=== PATIENT | male | born 1990 | race Caucasian/White ===

== ENCOUNTER 2016-07-14 22:06 | Emergency (ER) | payer OTHER ==
[2016-07-14 22:15] VITALS: TEMP 98.1
[2016-07-14] MEDS ORDERED: ONDANSETRON DISINTEGRATING 4 MG TAB PO ONE (22:42)
--- NOTE | 2016-07-14 22:42 | DX ---
Left hand 3 views History: Punched a table. Findings: Nondisplaced fracture of the distal aspect of the 5th metacarpal has minimal angulation, wi th minimal impaction along the radial side fracture. The distal articular surface is uninvolved. Soft tissues are swollen along the dorsal ulnar aspect of the risks, but the underlying bones appear intact. Impression: Nondisplaced fracture of left 5th metacarpal.
--- NOTE | 2016-07-14 22:45 | EDPHY ---
H & P Stated Complaint: PTSD Time Seen by Provider: 07/14/16 22:34 HPI/ROS: CHIEF COMPLAINT: Hand injury HISTORY OF PRESENT ILLNESS: Patient is a 25-year-old man who punched a sink. He is here complaining of left hand pain. He is also intoxicated. He denies other injuries. He is currently vomiting. He had a large amount of alcohol this evening. REVIEW OF SYSTEMS: Constitutional: denies: chills, fever, recent illness, recent injury EENTM: denies: blurred vision, double vision, nose congestion Respiratory: denies: cough, shortness of breath Cardiac: denies: chest pain, irregular heart rate, lightheadedness, palpitations Gastrointestinal/Abdominal: denies: abdominal pain, diarrhea, nausea, vomiting, blood streaked stools Genitourinary: denies: dysuria, frequency, hematuria, pain Musculoskeletal: See HPI Skin: denies: lesions, rash, jaundice, bruising Neurological: denies: headache, numbness, paresthesia, tingling, dizziness, weakness Hematologic/Lymphatic: denies: blood clots, easy bleeding, easy bruising Immunologic/allergic: denies: HIV/AIDS, transplant EXAM: GENERAL: Patient actively vomiting when I entered the room. HEAD: Atraumatic, normocephalic. EYES: Pupils equal round and reactive to light, extraocular movements intact, sclera anicteric, conjunctiva are normal. ENT: TMs normal, nares patent, oropharynx clear without exudates. Moist mucous membranes. NECK: Normal range of motion, supple without lymphadenopathy or JVD. LUNGS: Breath sounds clear to auscultation bilaterally and equal. No wheezes rales or rhonchi. HEART: Regular rate and rhythm without murmurs, rubs or gallops. ABDOMEN: Soft, nontender, normoactive bowel sounds. No guarding, no rebound. No masses appreciated. BACK: No CVA tenderness, no spinal tenderness, step-offs or deformities EXTREMITIES: Left hand metacarpal pain and swelling. Normal pulses and capillary refill. NEUROLOGICAL: Cranial nerves II through XII grossly intact. Normal speech, normal gait. 5/5 strength, normal movement in all extremities, normal sensation PSYCH: Normal mood, normal affect. SKIN: Warm, dry, normal turgor, no visible rashes or lesions. Source: Patient Exam Limitations: No limitations - Personal History Current Tetanus/Diphtheria Vaccine: Yes Current Tetanus Diphtheria and Acellular Pertussis (TDAP): Yes - Medical/Surgical History Hx Asthma: No Hx Chronic Respiratory Disease: No Hx Diabetes: Yes Hx Cardiac Disease: No Hx Renal Disease: Yes Hx Cirrhosis: No Hx Alcoholism: No Hx HIV/AIDS: No Hx Splenectomy or Spleen Trauma: No Other PMH: DM1, PTSD, - Family History Significant Family History: No pertinent family hx - Social History Smoking Status: Never smoked Alcohol Use: Sober Drug Use: None Constitutional: Initial Vital Signs Temperature (C) 36.7 C 07/14/16 22:12 Heart Rate 86 07/14/16 22:12 Respiratory Rate 22 H 07/14/16 22:12 Blood Pressure 129/90 H 07/14/16 22:12 O2 Sat (%) 95 07/14/16 22:12 O2 Delivery Mode Room Air Allergies/Adverse Reactions: Penicillins Allergy (Verified 07/14/16 22:11) Home Medications: Medication Instructions Recorded Humalog 07/14/16 Hydrocodone/APAP 5/325 [[place] 1 - 2 each PO Q4 PRN #14 tab 07/14/16 5/325] Lantus 100 UNITS/ML (*) 07/14/16 Sertraline HCl 07/14/16 Medical Decision Making - Diagnostics Imaging: X-ray: Left hand x-ray was obtained. I viewed the images myself on the PACS system. My interpretation of the images is: Metacarpal fracture distally moderately displaced. The radiologist interpretation is 5th metacarpal fracture. Procedures: Procedure: Splint placement. A ulnar gutter splint was applied. After application of the splint I returned and re-examined the patient. The splint was adequately immobilizing the joint and distal to the splint the patient's circulation and sensation was intact. ED Course/Re-evaluation: Patient has a boxer's fracture. He was splinted appropriately. I will have him follow up with Orthopedics. We will observe for increased sobriety and then discharge. I will also give him Zofran. He is actively vomiting when I entered the room. 11:15 p.m. Patient vomited after receiving Zofran we will place an IV hydrated and medicated him that way. He is currently talking with his girlfriend and she is rubbing his face. Differential Diagnosis: Partial list of the Differential diagnosis considered include but were not limited to; hand fracture, intoxication, PTSD and although unlikely based on the history and physical exam, I also considered infection, foreign body, wrist injury, assault. I discussed these differential diagnoses and the plan with the patient as well as the usual and expected course. The patient understands that the diagnosis is provisional and that in medicine we are not always correct and that further workup is often warranted. Usual and customary warnings were given. All of the patient's questions were answered. The patient was instructed to return to the emergency department should the symptoms at all worsen or return, otherwise to followup with the physician as we discussed. - Data Points Medications Given: Discontinued Medications Ondansetron HCl (Zofran Odt) 4 mg PO EDNOW ONE Stop: 07/14/16 22:43 Last Admin: 07/14/16 22:54 Dose: 4 mg Departure - Departure Disposition: Home, Routine, Self-Care Clinical Impression: Boxers fracture Qualifiers: Encounter type: initial encounter Fracture type: closed Qualifier Code: ( S62.309A) Unspecified fracture of unspecified metacarpal bone, initial encounter for closed fracture Condition: Fair Instructions: Hydrocodone/Acetaminophen (By mouth), Boxer Fracture (ED) Referrals: David Sky MD [Medical Doctor] - As per Instructions Prescriptions: Hydrocodone/APAP 5/325 [[place] 5/325] 1 - 2 each PO Q4 PRN #14 tab PRN Reason: Pain, Mild
[2016-07-15 00:19] VITALS: BP 129/84; PULSE 114; RESP 16; O2SAT 97
== END 2016-07-15 00:31 | disposition home or self-care (01) ==
DX: S62.307A Unspecified fracture of fifth metacarpal bone, left hand, initial encounter for closed fracture (principal); E10.9 Type 1 diabetes mellitus without complications; W22.8XXA Striking against or struck by other objects, initial encounter; Y93.89 Activity, other specified